=== PATIENT | male | born 1945 | race Caucasian/White ===

== ENCOUNTER 2023-10-15 15:45 | Emergency (ER) | payer OTHER, SELFPAY ==
[2023-10-15] VITALS (8 sets, daily range): BP systolic 106–124; BP diastolic 64–73; PULSE 59–68; BMI 26.8
[2023-10-15 16:08] LABS: % Basophils 1.1 % (0-2); % Eosinophils 2.7 % (0-6); % Immature Granulocytes 0.4 % (0-0.5); % Lymphocytes 19.5 % (20.5-51.1); % Neutrophils 68.3 % (42.2-75.2); Absolute Basophils 0.1 10^3/uL (0-0.2); Absolute Eosinophils 0.2 10^3/uL (0-0.7); Absolute Lymphocytes 1.1 10^3/uL (1.2-3.4); Absolute Monocytes 0.5 10^3/uL (0.1-0.6); Absolute Neutrophils 3.9 10^3/uL (1.4-6.5); Hemoglobin 11.3 g/dL (13.0-18.0); Mean Corp Hgb Conc. 32.3 g/dL (33.0-37.0); Mean Corpuscular Hgb 27.8 pg (27.0-31.0); Mean Corpuscular Volume 86.2 fL (80.0-94.0); Mean Platelet Volume 8.9 fL (7.4-10.4); Nucleated Red Blood Cells % 0 % (-); Platelet Count 213 10^3/uL (130-400); Red Blood Cell Count 4.06 10^6/uL (4.70-6.10); Red Cell Dist. Width 12.9 % (11.5-14.5); White Blood Cell Count 5.7 10^3/uL (4.8-10.8)
[2023-10-15 16:30] LABS: ALT (SGPT) 15 U/L (0-50); AST (SGOT) 22 U/L (17-59); Albumin 3.7 g/dl (3.5-5.0); Alkaline Phosphatase 31 U/L (38-126); Blood Urea Nitrogen 28 mg/dl (9-20); Calcium 9.2 mg/dl (8.4-10.2); Carbon Dioxide 24 mmol/L (22-30); Chloride 103 mmol/L (98-107); Estimated Creatinine Clearance 48 ml/min; Glucose 109 mg/dl (70-99); Potassium 4.4 mmol/L (3.5-5.1); Sodium 136 mmol/L (135-145); Total Bilirubin 0.4 mg/dl (0.2-1.3); Total Protein 6.1 g/dl (6.3-8.2); eGFR > 60.00
[2023-10-15] MEDS: NSS 1000 IV (17:51)
--- NOTE | 2023-10-15 18:17 | ED.GENMED ---
History of Present Illness
General
Chief Complaint: Fainting/Passed Out
Source: patient, spouse, family (son), ambulance crew and previous hospital records (ED visit for very similar syncopal event 06/2022)
Exam Limitations: none
Time Seen by Provider: 10/15/23 17:02
Nursing documentation reviewed up to this point in time: agreed with
Travel History
Have you had any contact with someone who has COVID-19?: No
Do you have any symptoms of coronavirus? Fever > 100 degrees, chills, cough, shortness of breath, sore throat, loss of taste or smell, muscle aches, or headache?: No
History of Present Illness
History of Present Illness:
This is an 78-year-old gentleman who resides at home with his . He has history of CAD, hypertension, hyperlipidemia, [id number] diabetes, BPH who presents via EMS after suffering a syncopal episode while sitting at a table at his
son's house. While sitting at the table he admits to suddenly becoming lightheaded, overall not feeling well and witnessed the patient to suddenly become very pale, poorly responsive. He was quickly lowered to the floor by his son and loss of
consciousness was brief lasting a few seconds. No seizure activity, no injury. He was incontinent of a small amount of urine.
Very similar syncopal event occurred June 2022, again while visiting family locally. He was evaluated in this ED at that time, unremarkable ED evaluation. Was noted to have sinus bradycardia which is chronic for patient.
He has since followed up with his flight dispatcher at home and states he underwent carotid ultrasounds which were reported unremarkable. He has had no recurrent syncopal episodes until tonight. He does however admit to occasional episodes of similar
prodrome of lightheadedness which she states quickly passes with sitting down or with lying down. He denies palpitations, denies a sense of dizziness, denies a sense of the room spinning, no chest pain, no nausea or vomiting.
Upon EMS arrival patient noted to have sinus bradycardia at 51 which according to patient and is chronic for him. Initial blood pressure 107/60. Patient states his blood pressure generally runs 110s to 120s systolic.
He was given atropine 1 mg IV as well as normal saline solution IV bolus 300 cc prehospital. Heart rate improved to 70 but has since drifted back to the 50s.
Currently feeling well, offers no complaints.
He does note somewhat frequent trip and falls, most recently 2 weeks ago where he tripped while ambulating, fell forward striking his nose. No loss of consciousness, able to write himself and no recurrent episodes. His believes his 'diabetic
shoes' are the cause for his trip and fall. She states these shoes are too big and heavy for him and he oftentimes appears to not lift his feet. He does not use assistive devices to ambulate.
There has been no recent change in medications. No recent URI nor GI illness. He did eat dinner tonight consuming 2 pieces of pizza and drinking iced tea.
believes these episodes occur when he is 'too hot' She sometimes tells him to take his sweater off or dress less warmly and symptoms seem to improve.
Past History
Past History
ED Past Medical History: CAD, HTN, Hypercholesterolemia, NIDDM, [place] (At age 48) and Other (Gout, BPH)
ED Past Surgical History: Other (Hernia repair)
Social History
Tobacco: Non-smoker
Alcohol: None
Personal:
Living: with family
Employment: Retired
Family History
Family History: Other (Noncontributory)
Phy Exam
Physical Exam
Physical Exam:
GENERAL: This is an 78-year-old gentleman who appears his stated age, bright and alert, pleasant, appears in no acute distress. and son are accompanying.
EYE: pupils equal and reactive. anicteric
NECK: Supple, nontender, no meningismus, no significant adenopathy. Full range of motion without difficulty nor pain.
ENT: posterior pharynx is clear, oral mucosa is significantly dry. TM clear b/l, there is minimal septal erythema on the right but no blood nor evidence of recent epistaxis. No septal hematoma. No bony tenderness nor soft tissue swelling.
CARDIAC: Regular rhythm, bradycardic at 52. no murmur.
LUNGS: Clear breath sounds bilaterally, no acute respiratory distress, no wheezes/rales/rhonchi
ABDOMEN: Soft, nondistended, without focal tenderness, normoactive BS.
NEUROLOGICAL: Alert and oriented x3, no focal neuro deficits. Motor strength is 5/5 bilaterally. Gross sensation is intact.
SKIN: Warm and dry, normal color, skin intact. No rash.
MUSCULOSKELETAL: No C/C/E. peripheral pulses are full and equal b/l. No palpable tenderness.
PSYCH: Normal and appropriate interaction.
Course
Orders/Labs/Results
Orders:
Orders
10/15/23 15:49
Electrocardiogram (*1) Urgent
Reason for Study: Syncope
EKG- Treatment ONCE
10/15/23 16:00
Complete Blood Count/With Diff Urgent
Comprehensive Metabolic Panel Urgent
10/15/23 17:37
Orthostatic VS- Treatment ONCE
0.9% Sodium Chloride 1000 ml [Nss] 1,000 ml IV BOLUS
10/15/23 17:38
CT Head W/o Iv Contrast Urgent
Comment:
Reason For Exam: syncope, intermittent L sided h/a
Abnormal Lab Results
10/15/23
16:00
RBC 4.06 L 10^6/uL
(4.70-6.10)
Hgb 11.3 L g/dL
(13.0-18.0)
Hct 35.0 L %
(39.0-52.0)
MCHC 32.3 L g/dL
(33.0-37.0)
Absolute Lymphs (auto) 1.1 L 10^3/uL
(1.2-3.4)
Lymphocytes % 19.5 L %
(20.5-51.1)
BUN 28 H mg/dl
(9-20)
Glucose 109 H mg/dl
(70-99)
Alkaline Phosphatase 31 L U/L
(38-126)
Total Protein 6.1 L g/dl
(6.3-8.2)
10/15/23 16:00
10/15/23 16:00
Vital Signs
Initial and Last Documented VS:
Initial Vital Signs
Pulse Resp BP Pulse Ox
70 14 117/73 100
10/15/23 15:47 10/15/23 15:47 10/15/23 15:47 10/15/23 15:47
Last Documented Vital Signs
Pulse Resp BP Pulse Ox
55 14 113/66 100
10/15/23 19:15 10/15/23 19:15 10/15/23 17:47 10/15/23 19:15
MDM/Problems Addressed
Differential Diagnosis Includes:
Patient presents after syncopal event at home with prodrome of not feeling well, lightheaded, pallor. Assisted to lie on the ground, no injury.
Concern for vasovagal episode, bradycardia arrhythmia. Although no seizure activity he was incontinent of small amount of urine, similar incontinence with syncopal event June 2022, must consider brief seizure activity.
No postictal phase and no recurrent episodes.
EKG shows normal sinus rhythm in the 70s, small Q waves inferiorly, first-degree AV block, similar and unchanged from previous EKG June 2022 save for heart rate has increased from 50 to now 70. This is likely due to atropine given prehospital.
Heart rate has drifted back down to the 50s.
Blood pressure is somewhat soft initially 117/73, has drifted to 108/64. According to patient his blood pressure generally runs 110-120 systolic.
Clinically appears dry.
He did suffer a trip and fall 2 weeks ago striking his nose and admits to occasional left-sided headaches. Will check CT of the head.
Will check orthostatic vital signs as well and will plan for IV fluids as clinically appears dry.
Will continue cloth examiner machine assess for arrhythmia.
Labs are very similar to previous labs June 2022. Mildly elevated BUN of 28, creatinine of 1.2. Blood sugar 109 no report of hypoglycemia prehospital�Accu-Chek was 90.
Chronic conditions affecting care: DM, HTN and CAD
*Radiology
Radiology exam reviewed: radiology read reviewed
*Pulse Oximetry
Patient hypoxic: no
*EKG
Interpreted by ED Provider?: Yes
Comparison EKG: no changes (Unchanged from previous June 2022 save for heart rate has increased from 52 to now 70.)
Rate: normal
Rhythm: sinus
Interval: first degree heart block
QRS Pattern: normal QRS
Ischemia: other (Q waves inferiorly, similar and unchanged from previous EKG June 2022)
*Harp Maker Interpretation
Rate: bradycardiac
Interpretation: normal
Rhythm: sinus
*Critical Care Note
Total Time (30-74mins, 75-104mins- exclusive of procedures): Not Applicable
Update Note
Update Note:
10/15/2023 1925 PM
Patient remains bright and alert, offers no complaints.
Orthostatic vital signs borderline/minimally positive but asymptomatic with standing.
Monitor continues to show sinus bradycardia in the 50s, no pauses.
After IV fluids blood pressure improved into the 1 teens to 120s, I suspect at his baseline.
CT of the head shows moderate age-related atrophy otherwise unremarkable.
Discussed the importance of staying well-hydrated on a daily basis. Would significantly limit iced tea consumption, switching to water versus decaffeinated sugar-free iced tea.
Discussed importance of prompt follow-up with flight dispatcher. Patient may need an event monitor as there is some concern for vasovagal episode versus arrhythmia as cause for syncope.
Also recommend follow-up with PCP and due to somewhat frequent mechanical falls he could certainly benefit with physical therapy evaluation/gait training.
To consider neurology evaluation as well due to syncopal event and urinary incontinence.
ED Attending Note
-
Portions of this chart may have been created with voice recognition software.� Occasional wrong word or��sound alike� substitutions may have occurred due to the inherent limitations of voice recognition software.
Discharge Plan
Departure
Patient Disposition: Home (Routine Discharge)
Date of Disposition: 10/15/23
Time of Disposition: 19:28
Patient with high blood pressure during this ER visit?: No
Condition: Good
Discharge Problem:
Syncope with normal neurologic examination
Instructions: Syncope (Fainting) (DC)
Prescriptions:
No Action
Unobtainable
0
Referrals:
Yuliya Marquez, [Family Provider] - Call in 1-3 days for appt
Activity Restrictions/Additional Instructions:
Stay well-hydrated on a daily basis. Water is the best. You can consume decaffeinated/sugar-free ice tea on a limited basis.
Follow-up with your flight dispatcher for recheck. This is now second episode of passing out, 2021 and then again today. Concern for potential cardiac arrhythmia as cause for syncope.
Due to frequent trip and falls I recommend you follow-up with your family doctor and discuss physical therapy for gait training.
As you had some incontinence of urine with syncopal event June 2022 and then again today, although no witnessed seizure activity there is still some concern for potential brief seizure thus would recommend you discuss this with your primary care
physician to consider neurology evaluation.
Interventions
Interventions:
*Risk Screen - Suicide Last Done: 10/15/23 15:56
*General Assessment Last Done: 10/15/23 15:47
*Neglect/Abuse Screening Last Done: 10/15/23 15:56
ED- Fall Risk Assessment Last Done: 10/15/23 15:56
*ED COVID-19 Vaccine History Last Done: 10/15/23 15:47
ED- Cardiac Assessment Last Done: 10/15/23 15:56
ED- Neurological Assessment Last Done: 10/15/23 15:56
Discharge Date and Time
Print Language: WOLOF
== END 2023-10-15 20:03 | disposition home or self-care (01) ==
LOC: EMR 15:45
PROVIDERS: Emergency Medicine; EMERGENCY PHYSICIAN Emergency Medicine; FAMILY PHYSICIAN Internal Medicine
DX: R55 Syncope and collapse (principal); R51.9 Headache, unspecified; R79.89 Other specified abnormal findings of blood chemistry; R94.4 Abnormal results of kidney function studies; R00.1 Bradycardia, unspecified; R42 Dizziness and giddiness; I25.10 Atherosclerotic heart disease of native coronary artery without angina pectoris; I10 Essential (primary) hypertension; E11.9 Type 2 diabetes mellitus without complications
CPT/HCPCS: 99285; 96360; 70450; 80053; 85025; 93005